=== PATIENT | female | born 1975 | race Two or more races ===

== ENCOUNTER 2017-09-05 01:51 | Emergency (ER) | payer MEDICAID ==
[~2017-09-05] VITALS: Ht 157.5 cm; Wt 81.6 kg
--- NOTE | 2017-09-05 02:13 | NUR ---
Pt ambulated to room with steady gait. Pt c/o sorethroat, neck pain and swelling x 2 days. Pt speaking full sentences, airway patent and no resp distress noted. Pt resting in position of comfort for self awaiting further eval.
[2017-09-05] MEDS ORDERED: CLINDAMYCIN PHOSPHATE IV 600 MG in IV DEXTROSE 5% 100 ML IV ONE (03:15)
[2017-09-05] MEDS ORDERED: IV NORMAL SALINE 1000 ML BAG IV ONE (03:15)
--- NOTE | 2017-09-05 03:26 | NUR ---
Pt seen by Dr. Ellis. IV established. Labs drawn and sent. Pt medicated for discomfort, will monitor for effects of medication. ABT infusion started, will monitor for any adverse reactions. Fluid bolus infusing freely to gravity. Pt resting in position of comfort for self.
[2017-09-05] MEDS ORDERED: DEXAMETHASONE SOD PHOSPHATE 4 MG INJ IV ONE (03:30)
[2017-09-05] MEDS ORDERED: KETOROLAC TROMETHAMINE 15 MG INJ IVP ONE (03:30)
[2017-09-05] MEDS ORDERED: CLINDAMYCIN PHOSPHATE 600 MG/4 ML VIAL ONE (03:31)
[2017-09-05 03:35] LABS: CREATININE 0.9 mg/dL (0.6-1.3); POTASSIUM 3.8 mmol/L (3.5-5.1)
[2017-09-05] MEDS ORDERED: DEXAMETHASONE SOD PHOSPHATE 10 MG INJ ONE (03:36)
[2017-09-05] MEDS ORDERED: KETOROLAC TROMETHAMINE 15 MG INJ ONE (03:36)
[2017-09-05 03:41] LABS: BILIRUBIN,DIRECT 0.1 mg/dL (0.0-0.2); BILIRUBIN,TOTAL 0.3 mg/dL (0.2-1.0); TOTAL PROTEIN, SERUM 8.8 g/dL (6.4-8.2)
[2017-09-05 03:45] LABS: BASOPHILS # (AUTO) 0.1 K/uL (0.0-8.0); BASOPHILS % (AUTO) 0.4 % (0.0-2.0); EOSINOPHILS # (AUTO) 0.2 K/uL (0.0-0.7); EOSINOPHILS % (AUTO) 1.7 % (0.0-7.0); HEMATOCRIT 38.7 % (37-47); HEMOGLOBIN 12.6 G/DL (12.0-16.0); LYMPHOCYTES % (AUTO) 23.5 % (20.5-51.5); MEAN CORPUSCULAR HEMOGLOBIN 26.2 UUG (27.0-31.0); MEAN CORPUSCULAR HGB CONC 33 g/dL (32.0-37.0); MEAN CORPUSCULAR VOLUME 80.6 FL (81.0-99.0); MONOCYTES # (AUTO) 0.7 K/UL (0.1-1.30); MONOCYTES % (AUTO) 5.5 % (0.0-11.0); NEUTROPHILS # (AUTO) 8.7 K/UL (1.8-8.9); NEUTROPHILS % (AUTO) 68.9 % (38.5-71.5); PLATELET COUNT (AUTO) 391 K/UL (150-450); WHITE BLOOD COUNT (AUTO) 12.7 K/UL (4.0-11.2)
--- NOTE | 2017-09-05 04:13 | NUR ---
ABT infusion completed, no adverse reactions noted. Second liter of fluid bolus started and is infusing freely to gravity. Pt sts pain improved with medication. Pt now resting in a poaition of comfort for self with eyes closed, resp even and unlabored.
--- NOTE | 2017-09-05 06:15 | NUR ---
Fluid bolus completed. Pt sts she is feeling better. Pt stable for discharge per Dr. Ellis. IV dc'd, catheter intact. Drsg applied. No problems noted to site. Pt given ACI. Pt verbalized understanding of dc instructions. Pt wheeled out of ER via w/c with ride home.
[2017-09-05 06:42] VITALS: BP 161/64
== END 2017-09-05 06:15 | disposition home or self-care (01) ==
LOC: ER 01:56
DX: K11.20 Sialoadenitis, unspecified (principal); R13.10 Dysphagia, unspecified; Z88.0 Allergy status to penicillin; F17.200 Nicotine dependence, unspecified, uncomplicated; Z90.49 Acquired absence of other specified parts of digestive tract
CPT/HCPCS: 36415; 70030-TC; 70490; 71010; 83605; 84703; 85025; 85730; 87040; A4663; J1100; J1885; J3490; J7030; J7060

== ENCOUNTER 2023-03-14 18:46 | Emergency (ER) | payer OTHER ==
[~2023-03-14] VITALS: Ht 157.5 cm; Wt 86.2 kg
--- NOTE | 2023-03-14 19:15 | NUR ---
Patient placed in room 2B.
--- NOTE | 2023-03-14 19:17 | NUR ---
Dr. Vasquez evaluating patient at bedside. MSE in progress.
[2023-03-14] MEDS ORDERED: LIDOCAINE HCL 2% 20 ML VIAL IJ ONE (19:30)
[2023-03-14] MEDS ORDERED: LIDOCAINE HCL 2% 20 ML VIAL ONE (19:31)
--- NOTE | 2023-03-14 20:55 | NUR ---
Patient discharged to home in stable condition. Written and verbal after care instructions given. Patient verbalizes understanding of instructions. Stressed follow up or return to ER for worsening s/s.
[2023-03-14 21:11] VITALS: BP 133/85
== END 2023-03-14 21:12 | disposition home or self-care (01) ==
LOC: ER 18:47
DX: R22.32 Localized swelling, mass and lump, left upper limb (principal); F17.210 Nicotine dependence, cigarettes, uncomplicated; Z90.49 Acquired absence of other specified parts of digestive tract; Z88.0 Allergy status to penicillin
CPT/HCPCS: 99284; 10160; J3490; A4663

== ENCOUNTER 2023-05-27 19:05 | Emergency (ER) | payer OTHER ==
[~2023-05-27] VITALS: Ht 157.5 cm; Wt 81.6 kg
[2023-05-27 20:10] LABS: BASOPHILS % (AUTO) 0.7 % (0.0-2.0); EOSINOPHILS # (AUTO) 0.1 K/uL (0.0-0.7); EOSINOPHILS % (AUTO) 1.9 % (0.0-7.0); HEMATOCRIT 35.3 % (31.2-41.9); HEMOGLOBIN 11.4 g/dL (10.9-14.3); LYMPHOCYTES # (AUTO) 2.7 K/uL (0.8-4.8); LYMPHOCYTES % (AUTO) 35.4 % (20.5-51.5); MEAN CORPUSCULAR HEMOGLOBIN 26.7 uug (24.7-32.8); MEAN CORPUSCULAR HGB CONC 32 g/dL (32.3-35.6); MEAN CORPUSCULAR VOLUME 82.9 fL (75.5-95.3); MONOCYTES # (AUTO) 0.6 K/uL (0.1-1.30); MONOCYTES % (AUTO) 7.6 % (0.0-11.0); NEUTROPHILS # (AUTO) 4.1 K/uL (1.8-8.9); NEUTROPHILS % (AUTO) 54.4 % (38.5-71.5); PLATELET COUNT (AUTO) 309 K/uL (179-408); RED BLOOD CELL COUNT(AUTO) 4.26 MIL/uL (3.63-4.92); RED CELL DISTRIBUTION WIDTH 14.6 % (12.3-17.7); WHITE BLOOD COUNT (AUTO) 7.5 K/uL (3.8-11.8)
[2023-05-27 20:16] LABS: DIFFERENTIAL COMMENT 1
[2023-05-27 20:29] LABS: CALCIUM 9.1 mg/dL (8.5-10.1); CARBON DIOXIDE 25 mmol/L (21-32); CHLORIDE 106 mmol/L (98-107); CREATININE 0.7 mg/dL (0.6-1.3); GLUCOSE 96 mg/dL (74-106); POTASSIUM 3.9 mmol/L (3.5-5.1); SODIUM SERUM 141 mmol/L (136-145); UREA NITROGEN, BLOOD 16 mg/dL (7-18)
[2023-05-27 20:42] LABS: ALANINE AMINOTRANSFERASE 14 U/L (14-59); ALBUMIN 3.5 g/dL (3.4-5.0); ALKALINE PHOSPHATASE 52 U/L (50-136); ASPARTATE AMINOTRANSFERASE < 5 U/L (15-37); BILIRUBIN,DIRECT < 0.1 mg/dL (0.0-0.2); BILIRUBIN,TOTAL 0.2 mg/dL (0.2-1.0); NT-PRO BNP 18 pg/mL (0-125); TOTAL PROTEIN, SERUM 7.3 g/dL (6.4-8.2)
[2023-05-27] MEDS ORDERED: METO-357 PO (22:05)
[2023-05-27 22:54] VITALS: BP 140/75; TEMP 98.2; O2SAT 100
== END 2023-05-27 22:55 | disposition home or self-care (01) ==
LOC: ER 19:07
DX: R55 Syncope and collapse (principal); R10.2 Pelvic and perineal pain; F17.210 Nicotine dependence, cigarettes, uncomplicated; Z90.49 Acquired absence of other specified parts of digestive tract; Z88.0 Allergy status to penicillin; Z79.899 Other long term (current) drug therapy
CPT/HCPCS: 36415; 70450; 84484; 85025; 85730; 93005; A4663